=== PATIENT | female | born 1990 ===

== ENCOUNTER 2017-11-17 12:36 | Emergency (ER) | payer MEDICAID, OTHER ==
[2017-11-17 12:54] VITALS: RESP 18
[2017-11-17] MEDS ORDERED: Sodium Chloride 0.9% 1,000 ML IV ONE (13:15)
--- NOTE | 2017-11-17 13:21 | C.PDOC ---
History Of Present Illness 27 y/o female presents to the ED with complaints of pelvic pain. LMP was at the beginning of September. Patient reports home test was positive on October 31. Additionally she complains of nausea over the last couple of weeks, which she attributed to . Over the past 2-3 days, patient developed suprapubic pain near prior site, prompting concern. She reports it feels like a "muscle pulling." Otherwise she denies any vaginal bleeding, discharge, dysuria, flank pain, fever, chest pain, or SOB. Time Seen by Provider: 11/17/17 13:07 Chief Complaint (Nursing): Abdominal Pain History Per: Patient History/Exam Limitations: no limitations Onset/Duration Of Symptoms: Days Current Symptoms Are (Timing): Still Present Associated Symptoms: Nausea Abnormal Vaginal Bleeding: No Last Menstral Period: early September Past Medical History Reviewed: Historical Data, Nursing Documentation, Vital Signs Vital Signs: Last Vital Signs Temp 98.7 F 11/17/17 12:51 Pulse 88 11/17/17 12:51 Resp 18 11/17/17 12:51 BP 131/88 11/17/17 12:51 Pulse Ox 97 11/17/17 14:45 - Medical History PMH: Asthma, HTN (POST ) Surgical History: Family History: States: No Known Family Hx - Social History Hx Tobacco Use: No Hx Alcohol Use: No Hx Substance Use: No - Immunization History Hx Tetanus Toxoid Vaccination: No Hx Influenza Vaccination: No Hx Pneumococcal Vaccination: No Review Of Systems Except As Marked, All Systems Reviewed And Found Negative. Constitutional: Negative for: Fever, Chills Cardiovascular: Negative for: Chest Pain Respiratory: Negative for: Shortness of Breath Gastrointestinal: Positive for: Nausea, Abdominal Pain (suprapubic). Negative for: Diarrhea Genitourinary: Negative for: Dysuria, Hematuria, Vaginal Discharge, Vaginal Bleeding Musculoskeletal: Negative for: Back Pain Physical Exam - Physical Exam Appears: Well, Non-toxic, No Acute Distress Skin: Normal Color, Warm, Dry Head: Atraumatic, Normacephalic Eye(s): bilateral: Normal Inspection, PERRL, EOMI Oral Mucosa: Moist Neck: Normal ROM Chest: Symmetrical Cardiovascular: Rhythm Regular, No Murmur Respiratory: Normal Breath Sounds, No Rales, No Rhonchi, No Wheezing Gastrointestinal/Abdominal: Soft, No Tenderness, No Distention, No Guarding, Other (Well-healed scar to suprapubic area) Extremity: Bilateral: Atraumatic, Normal Color And Temperature, Normal ROM Pulses: Left Dorsalis Pedis: Normal, Right Dorsalis Pedis: Normal Neurological/Psych: Oriented x3, Normal Speech ED Course And Treatment - Laboratory Results Result Diagrams: 11/17/17 13:45 11/17/17 13:45 O2 Sat by Pulse Oximetry: 97 (on RA) Pulse Ox Interpretation: Normal Medical Decision Making Medical Decision Making: Impression: 27 year old female with complaints of suprapubic pain Plan: * Blood work with beta-HCG quant * Urinalysis * Urine culture * IV fluids * Transvaginal/ US IMPRESSION: No evidence of intrauterine gestational sac. If indeed the patient is based on serum beta HCG values, the sonographic findings represent either: Very early IUP; embryonic demise; ectopic gestation. Follow-up with serial quantitative serum beta HCG measurements and post OBGYN follow-up as clinically indicated, since ectopic gestation cannot be excluded based only on sonographic findings. 3.9 x 2.9 x 4.1 cm right ovarian complex cyst. 2:39PM UA negative and labs grossly normal. BHCG negative. Patient was made aware of ultrasound report and bhcg result. She denies vaginal bleeding since positive home test. I explained my concern that this was a false positive vs early vs demise vs ectopic . Patient was made aware of need to follow-up with her nurse executive for additional evaluation within 2 days. Her abdomen continuesto be soft NT/ND. 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 Return immediately with any worsening symptoms. Instructions: Ovarian Cysts Forms: [employer] (Welsh) - Clinical Impression Clinical Impression: Elevated LFTs, Abdominal pain, Menstrual period late, Ovarian cyst, Positive home test - Scribe Statement The provider has reviewed the documentation as recorded by the Scribe (Sheyla Rios) Provider Attestation: All medical record entries made by the Scribe were at my direction and personally dictated by me. I have reviewed the chart and agree that the record accurately reflects my personal performance of the history, physical exam, medical decision making, and the department course for this patient. I have also personally directed, reviewed, and agree with the discharge instructions and disposition.
[2017-11-17 13:48] LABS: BASO # 0.1 K/uL (0.0-0.2); BASO % 1.2 % (0.0-2.0); EOS # 0.1 K/uL (0.0-0.7); EOS % 0.8 % (0.0-4.0); HEMOGLOBIN 12.2 g/dL (11.0-16.0); LYMPH # 2.3 K/uL (1.0-4.3); LYMPH % 33.9 % (20.0-40.0); MEAN CELL VOLUME 89.8 fL (81.0-99.0); MEAN CORPUSCULAR HEMOGLOBIN 31.5 pg (27.0-31.0); MEAN PLATELET VOLUME 9.1 fL (7.2-11.7); MONO # 0.6 K/uL (0.0-0.8); MONO % 9.1 % (0.0-10.0); NEUT # 3.7 K/uL (1.8-7.0); RBC 3.87 Mil/uL (3.80-5.20); RED CELL DISTRIBUTION WIDTH 12.7 % (11.5-14.5); WHITE BLOOD COUNT 6.8 K/uL (4.8-10.8)
[2017-11-17] MEDS ORDERED: Sodium Chloride 0.9% 1,000 ML ONE (13:48)
[2017-11-17 13:56] LABS: SQUAMOUS EPITHIAL 2 /hpf (0-5); URINE BILIRUBIN NEGATIVE (NEGATIVE); URINE BLOOD NEGATIVE (NEGATIVE); URINE CLARITY Clear (Clear); URINE COLOR Yellow (YELLOW); URINE GLUCOSE (UA) NORMAL (Normal); URINE LEUKOCYTE ESTERASE NEG Leu/uL (Negative); URINE PROTEIN NEGATIVE (NEGATIVE); URINE UROBILINOGEN NORMAL mg/dL (0.2-1.0)
[2017-11-17 14:00] LABS: ALB/GLOB RATIO 1.5 (1.0-2.1); ALBUMIN 4.6 g/dL (3.5-5.0); ALT/SGPT 68 U/L (9-52); AST/SGOT 37 U/L (14-36); BLOOD UREA NITROGEN 10 mg/dL (7-17); CALCIUM 9.6 mg/dl (8.6-10.4); GFR NON-AFRICAN AMERICAN > 60
--- NOTE | 2017-11-17 14:35 | US ---
Date of service: 11/17/2017 HISTORY: , abdominal pain COMPARISON: None available. TECHNIQUE: Real-time transabdominal pelvic ultrasound was performed. In addition a transvaginal pelvic ultrasound was necessary to better depict pelvic anatomy. FINDINGS: UTERUS: Measures 7.8 x 5.6 x 6.1 cm. Retroverted. ENDOMETRIUM: Measures 1.6 mm in diameter. CERVIX: No cervical abnormality identified. RIGHT OVARY: Measures 5.0 x 3.5 x 4.8 cm. Blood flow is demonstrated. 3.9 x 2.9 x 4.1 cm complex cyst. LEFT OVARY: Measures 3.9 x 2.4 x 3.5 cm. Blood flow is demonstrated. FREE FLUID: No significant free fluid noted. OTHER FINDINGS: None. IMPRESSION: No evidence of intrauterine gestational sac. If indeed the patient is based on serum beta HCG values, the sonographic findings represent either: Very early IUP; embryonic demise; ectopic gestation. Follow-up with serial quantitative serum beta HCG measurements and post OBGYN follow-up as clinically indicated, since ectopic gestation cannot be excluded based only on sonographic findings. 3.9 x 2.9 x 4.1 cm right ovarian complex cyst.
[2017-11-17 15:03] VITALS: BP 122/72; PULSE 79; TEMP 98.8; O2SAT 100
== END 2017-11-17 15:03 | disposition home or self-care (01) ==
LOC: C.ER 12:36
DX: R79.89 Other specified abnormal findings of blood chemistry (principal); N83.201 Unspecified ovarian cyst, right side; R10.9 Unspecified abdominal pain; Z32.01 Encounter for pregnancy test, result positive
CPT/HCPCS: 76830; 76856; 80053; 81001; 83735; 84100; 84702; 85025; 87086; 96360; 99284; J7030

== ENCOUNTER 2017-11-18 16:36 | Emergency (ER) | payer MEDICAID, OTHER ==
[2017-11-18 16:47] VITALS: BMI 29.9
[2017-11-18] MEDS ORDERED: DiphenhydrAMINE 50 mg/ml Inj IVP STA (17:21)
[2017-11-18] MEDS ORDERED: Sodium Chloride 0.9% 1,000 ML IV STA (17:21)
--- NOTE | 2017-11-18 17:26 | C.PDOC ---
History Of Present Illness 27 y/o F presents to the ED with complaints of abdominal pain. LMP was at the beginning of September. Patient reports home test was positive on October 31. Additionally she complains of nausea over the last couple of weeks but no vomiting, which she attributed to . Over the past 2-3 days , patient developed suprapubic pain near prior site, prompting concern. She reports it feels like a "muscle pulling." Otherwise she denies any vaginal bleeding, discharge, dysuria, flank pain, fever, chest pain, or SOB. She was here yesterday, found to have negative beta and US shows no IUP and did not R sided ovarian cyst. Patient states since being home, she developed RUQ pain as well. She is also complaining of throbbing headache with photophobia/ phonophobia and a room moving sensation since yesterday. Time Seen by Provider: 11/18/17 16:59 Chief Complaint (Nursing): Abdominal Pain Past Medical History Vital Signs: Last Vital Signs Temp 99.0 F 11/18/17 18:53 Pulse 67 11/18/17 18:53 Resp 18 11/18/17 18:53 BP 109/72 11/18/17 18:53 Pulse Ox 100 11/18/17 18:53 - Medical History PMH: Asthma, HTN (POST ) Surgical History: Family History: States: No Known Family Hx - Social History Hx Tobacco Use: No Hx Alcohol Use: No Hx Substance Use: No - Immunization History Hx Tetanus Toxoid Vaccination: No Hx Influenza Vaccination: No Hx Pneumococcal Vaccination: No Review Of Systems Except As Marked, All Systems Reviewed And Found Negative. Constitutional: Negative for: Fever Cardiovascular: Negative for: Chest Pain Physical Exam - Physical Exam Additional Physical Exam Comments: Constitutional: No acute distress. Head: Normocephalic. Atraumatic. Eyes: PERRL. ENT: Moist mucous membranes. Neck: Supple. Cardiovascular: Regular rate. Radial pulse 2+ bilaterally. Chest: No tenderness. Respiratory: Clear to auscultation bilaterally. GI: Soft. Nondistended. RUQ/RLQ/LLQ tenderness without guarding. Back: No CVA tenderness. Musculoskeletal: No tenderness or swelling of extremities. Skin: No rash. Neurologic: Alert, no focal deficit. Negative Popeye Hallpike maneuver. ED Course And Treatment - Laboratory Results Result Diagrams: 11/18/17 17:30 11/18/17 17:30 O2 Sat by Pulse Oximetry: 100 Medical Decision Making Medical Decision Making: Labs unremarkable. Pending CT read. Disposition - Disposition Disposition Time: 19:00 Condition: STABLE Forms: [facility] (Belgian) - Clinical Impression Clinical Impression: Abdominal pain
[2017-11-18] MEDS ORDERED: Sodium Chloride 0.9% 1,000 ML ONE (17:33)
[2017-11-18] MEDS ORDERED: Iodixanol 320 MG/ML 100 ML BOTTLE IV ONE (17:38)
[2017-11-18 17:40] LABS: BASO # 0.1 K/uL (0.0-0.2); BASO % 1.1 % (0.0-2.0); EOS # 0.1 K/uL (0.0-0.7); EOS % 1.3 % (0.0-4.0); HEMOGLOBIN 12.2 g/dL (11.0-16.0); LYMPH # 2.7 K/uL (1.0-4.3); LYMPH % 37.2 % (20.0-40.0); MEAN CELL VOLUME 89.6 fL (81.0-99.0); MEAN CORPUSCULAR HEMOGLOBIN 31.1 pg (27.0-31.0); MEAN CORPUSCULAR HGB CONC 34.7 g/dL (33.0-37.0); MEAN PLATELET VOLUME 9.3 fL (7.2-11.7); MONO # 0.6 K/uL (0.0-0.8); MONO % 8.6 % (0.0-10.0); NEUT # 3.8 K/uL (1.8-7.0); NEUT % 51.8 % (50.0-75.0); RBC 3.91 Mil/uL (3.80-5.20); RED CELL DISTRIBUTION WIDTH 12.8 % (11.5-14.5); WHITE BLOOD COUNT 7.3 K/uL (4.8-10.8)
[2017-11-18] MEDS ORDERED: DiphenhydrAMINE 50 mg/ml Inj ONE (17:40)
[2017-11-18 17:44] LABS: SQUAMOUS EPITHIAL < 1 /hpf (0-5); URINE BILIRUBIN NEGATIVE (NEGATIVE); URINE BLOOD NEGATIVE (NEGATIVE); URINE CLARITY Clear (Clear); URINE COLOR Yellow (YELLOW); URINE GLUCOSE (UA) NORMAL (Normal); URINE LEUKOCYTE ESTERASE NEG Leu/uL (Negative); URINE PROTEIN NEGATIVE (NEGATIVE); URINE UROBILINOGEN NORMAL mg/dL (0.2-1.0)
[2017-11-18 18:06] LABS: ALB/GLOB RATIO 1.5 (1.0-2.1); ALBUMIN 4.3 g/dL (3.5-5.0); ALT/SGPT 58 U/L (9-52); AST/SGOT 31 U/L (14-36); BLOOD UREA NITROGEN 13 mg/dL (7-17); CALCIUM 9.8 mg/dl (8.6-10.4); GFR NON-AFRICAN AMERICAN > 60; LIPASE 59 U/L (23-300)
[2017-11-18 18:54] VITALS: TEMP 99
[2017-11-18 20:19] VITALS: BP 110/76; PULSE 71; RESP 16; O2SAT 99
--- NOTE | 2017-11-19 09:18 | CT ---
Date of service: 11/18/2017 PROCEDURE: CT Abdomen and Pelvis with contrast HISTORY: abdominal pain, nausea COMPARISON: None. TECHNIQUE: CT scan of the abdomen and pelvis was performed after administration of intravenous contrast. Oral contrast was not administered. Coronal and sagittal reformatted images were obtained. Contrast dose: 100 mL Visipaque Radiation dose: Total exam DLP = 617.52 mGy-cm. This CT exam was performed using one or more of the following dose reduction techniques: Automated exposure control, adjustment of the mA and/or kV according to patient size, and/or use of iterative reconstruction technique. FINDINGS: LOWER THORAX: The visualized lungs are clear. LIVER: Normal in size with homogeneous enhancement. No gross lesion or ductal dilatation. GALLBLADDER AND BILE DUCTS: The gallbladder is contracted. PANCREAS: Normal in size with homogeneous enhancement. No gross lesion or ductal dilatation. SPLEEN: Normal in size with homogeneous enhancement. ADRENALS: No discrete nodule. KIDNEYS AND URETERS: Normal in size with homogeneous enhancement. No hydronephrosis. No solid mass. VASCULATURE: No aortic aneurysm. BOWEL: The small bowel loops are normal in caliber. There is fecalization of small bowel contents. There is large amount of stool in the colon and rectum. No bowel dilatation or obstruction. APPENDIX: Normal appendix. PERITONEUM: No free fluid. No free air. LYMPH NODES: No enlarged lymph nodes. BLADDER: Well distended and normal in appearance. REPRODUCTIVE: The uterus is normal in size. There is a 4.2 x 2.8 cm simple cyst in the right ovary. BONES: No acute fracture. Within normal limits for the patient's age. OTHER FINDINGS: None. IMPRESSION: Severe constipation. Fecalization of small bowel contents suggestive of chronic stasis. No bowel obstruction. 4.2 cm simple cyst in the right ovary. Correlation with pelvic ultrasound is recommended to assess for torsion. A preliminary report was provided by [email or web address].
== END 2017-11-18 20:19 | disposition home or self-care (01) ==
LOC: C.ER 16:36
DX: N83.209 Unspecified ovarian cyst, unspecified side (principal); R10.11 Right upper quadrant pain
CPT/HCPCS: 74177; 80053; 81001; 83690; 84702; 85025; 87086; 96361; 96374; 96375; 99285; J1200; J1885; J2765; J7030; Q9967